=== PATIENT | female | born 1945 | race Caucasian/White ===

== ENCOUNTER 2021-05-16 06:04 | Emergency (ER) | payer MEDICARE, OTHER ==
[~2021-05-16] VITALS: Ht 165.1 cm; Wt 88.6 kg
[~2021-05-16 06:04] MED LIST: LISI-232 PO; TRAM50TA2 PO
[2021-05-16 07:40] LABS: BASOPHILS % (AUTO) 0.5 % (0-1); EOSINOPHILS % (AUTO) 0.1 % (0-6); HEMATOCRIT 36.9 % (35.0-45.0); HEMOGLOBIN 12.5 g/dl (12.0-16.0); LYMPHOCYTES # (AUTO) 0.7 X10'3 (1.1-4.8); LYMPHOCYTES % (AUTO) 11.3 % (21-51); MEAN CORPUSCULAR HEMOGLOBIN 29.6 PG (27.0-31.0); MEAN CORPUSCULAR VOLUME 86.9 FL (78-98); MEAN PLATELET VOLUME 8.2 FL (7.4-10.4); MONOCYTES # (AUTO) 0.5 X10'3 (0-0.9); MONOCYTES % (AUTO) 8.2 % (2-12); NEUTROPHILS % (AUTO) 79.9 % (42-75); PLATELET COUNT 217 X10'3 (140-440); RED BLOOD COUNT 4.24 X10'6 (4.20-5.60); RED CELL DISTRIBUTION WIDTH 14.5 % (11.5-14.5); WHITE BLOOD COUNT 6.2 X10'3 (4.5-11.0)
[2021-05-16 07:58] LABS: ALANINE AMINOTRANSFERASE 15 U/L (12-78); ALBUMIN 3.6 G/DL (3.4-5.0); ALKALINE PHOSPHATASE 74 IU/L (46-116); ANION GAP 12 (8-16); ASPARTATE AMINO TRANSFERASE 15 U/L (10-37); BILIRUBIN,TOTAL 0.3 MG/DL (0.1-1.0); BLOOD UREA NITROGEN 19 MG/DL (7-18); BUN/CREATININE RATIO 17.4 (6.6-38.0); CALCIUM 8.6 MG/DL (8.5-10.1); CHLORIDE 102 MMOL/L (99-107); CREATININE 1.09 MG/DL (0.40-0.90); GLUCOSE 121 MG/DL (70-104); POTASSIUM 3.8 MMOL/L (3.5-5.1); SODIUM 139 MMOL/L (135-145); TOTAL CARBON DIOXIDE 25.3 MMOL/L (24-32); TOTAL PROTEIN 7.3 G/DL (6.4-8.2); eGFR 49 ML/MIN
[2021-05-16] MEDS ORDERED: [UNRECOGNIZED DRUG - OTHER] IV ONE (08:25)
[2021-05-16] MEDS ORDERED: CASIRIVIMAB (REGN10933) 1332MG 600 MG, IMDEVIMAB (REGN10987) 1332mg 600 MG in normal sa... IV ONE (09:20)
[2021-05-16 12:57] VITALS: BP 149/88
== END 2021-05-16 13:00 | disposition home or self-care (01) ==
LOC: ER 06:05
DX: U07.1 COVID-19 (principal); J06.9 Acute upper respiratory infection, unspecified; R09.81 Nasal congestion; R51.9 Headache, unspecified; R11.0 Nausea; R05 Cough; R07.89 Other chest pain; I10 Essential (primary) hypertension; Z87.440 Personal history of urinary (tract) infections; Z98.890 Other specified postprocedural states; Z72.89 Other problems related to lifestyle; Z88.8 Allergy status to other drugs, medicaments and biological substances; Z79.899 Other long term (current) drug therapy
CPT/HCPCS: 36415; 71045; 80053; 84484; 85025; 87635; 93005; 99285; C9803; M0243; Q0243

== ENCOUNTER 2023-09-10 10:55 | Inpatient (IN) | payer MEDICARE, OTHER ==
[~2023-09-10] VITALS: Ht 165.1 cm; Wt 96.8 kg
[2023-09-10 11:44] LABS: BASOPHILS # (AUTO) 0.1 X10'3 (0-0.2); BASOPHILS % (AUTO) 0.8 % (0-1); EOSINOPHILS # (AUTO) 0.1 X10'3 (0-0.9); EOSINOPHILS % (AUTO) 1.1 % (0-6); HEMOGLOBIN 14.1 g/dl (12.0-16.0); LYMPHOCYTES # (AUTO) 1.7 X10'3 (1.1-4.8); LYMPHOCYTES % (AUTO) 18.3 % (21-51); MEAN CORPUSCULAR HEMOGLOBIN 30.8 PG (27.0-31.0); MEAN CORPUSCULAR HGB CONC 34.5 g/dL (33.0-36.5); MEAN CORPUSCULAR VOLUME 89.2 FL (78-98); MEAN PLATELET VOLUME 8.3 FL (7.4-10.4); MONOCYTES # (AUTO) 0.5 X10'3 (0-0.9); MONOCYTES % (AUTO) 5.6 % (2-12); NEUTROPHILS # (AUTO) 7.1 X10'3 (1.8-7.7); NEUTROPHILS % (AUTO) 74.2 % (42-75); PLATELET COUNT 329 X10'3 (140-440); RED CELL DISTRIBUTION WIDTH 14.7 % (11.5-14.5); WHITE BLOOD COUNT 9.5 X10'3 (4.5-11.0)
[2023-09-10] MEDS ORDERED: diltiazem-NS 100mg/100ml 100 ML IV SCH ×2 (11:50→14:20)
[2023-09-10] MEDS ORDERED: diltiazem 5mg/ml 5ml inj. IV ONE ×2 (11:50→14:20)
[2023-09-10 11:57] LABS: ALANINE AMINOTRANSFERASE 22 U/L (12-78); ALBUMIN 3.9 G/DL (3.4-5.0); ALBUMIN/GLOBULIN RATIO 1.1 (1.1-1.5); ALKALINE PHOSPHATASE 74 IU/L (46-116); ANION GAP 11 (8-16); ASPARTATE AMINO TRANSFERASE 25 U/L (10-37); BILIRUBIN,TOTAL 0.5 MG/DL (0.1-1.0); BLOOD UREA NITROGEN 21 MG/DL (7-18); BUN/CREATININE RATIO 19.3 (10.0-20.0); CALCIUM 9.2 MG/DL (8.5-10.1); CHLORIDE 102 MMOL/L (99-107); CREATININE 1.09 MG/DL (0.40-0.90); GLUCOSE 123 MG/DL (70-104); SODIUM 138 MMOL/L (135-145); TOTAL CARBON DIOXIDE 25.2 MMOL/L (24-32); TOTAL PROTEIN 7.5 G/DL (6.4-8.2); eCRCL 40 ML/MIN; eGFR 49 ML/MIN
[2023-09-10 12:06] LABS: PRO BRAIN NATRIURETIC PEPTIDE 183 PG/ML (0-450)
[2023-09-10] MEDS ORDERED: ondansetron/PF 4mg/2ml inj IV PRN (13:55)
[2023-09-10] MEDS ORDERED: magnesium hydroxide 30ml (MOM) UD suspension PO PRN (13:55)
[2023-09-10] MEDS ORDERED: mag hydrox/Alum hydrox/simeth 30ml oral suspension PO PRN (13:55)
[2023-09-10] MEDS ORDERED: magnesium 4gm in 100ml NS 100 ML IV PRN (13:55)
[2023-09-10] MEDS ORDERED: magnesium Cl slow-release 64mg tablet PO PRN (13:55)
[2023-09-10] MEDS ORDERED: magnesium 2GM in 50ml NS 50 ML IV PRN (13:55)
[2023-09-10] MEDS ORDERED: acetaminophen 325mg tablet PO PRN (13:55)
[2023-09-10] MEDS ORDERED: potassium Cl 20 mEq SR tablet PO PRN ×2 (13:55)
[2023-09-10] MEDS ORDERED: potassium Cl 40MEQ/1/2NS 520ml 520 ML IV PRN (13:55)
[2023-09-10] MEDS ORDERED: diltiazem CD 120mg capsule (once-daily) PO SCH (14:35)
[2023-09-10] MEDS: diltiazem 30mg tablet PO SCH (18:51)
[2023-09-10] MEDS ORDERED: heparin, porcine 5000 units/ml vial SQ SCH (20:00)
[2023-09-10] MEDS: docusate sod 100mg capsule PO SCH (20:00)
[2023-09-10] MEDS: K and/or MAG REPLACEMENT MC SCH (20:12)
[2023-09-10] MEDS: apixaban 5mg tablet PO SCH (20:20)
[2023-09-10 21:52] VITALS: RESP 19; O2SAT 97
[2023-09-10 22:00] VITALS: BP 137/90; PULSE 63; RESP 19; TEMP 97.2; O2SAT 97
[2023-09-11] VITALS (9 sets, daily range): BP systolic 111–139; BP diastolic 64–91; PULSE 87–130; RESP 16–19; TEMP 97.1–98; O2SAT 93–98
[2023-09-11] MEDS: diltiazem 30mg tablet PO SCH ×4 (02:32→20:02)
[2023-09-11 06:39] LABS: BASOPHILS # (AUTO) 0.1 X10'3 (0-0.2); BASOPHILS % (AUTO) 0.6 % (0-1); EOSINOPHILS # (AUTO) 0.2 X10'3 (0-0.9); EOSINOPHILS % (AUTO) 2.4 % (0-6); HEMATOCRIT 38.2 % (35.0-45.0); HEMOGLOBIN 12.9 g/dl (12.0-16.0); LYMPHOCYTES # (AUTO) 2.5 X10'3 (1.1-4.8); LYMPHOCYTES % (AUTO) 27.4 % (21-51); MEAN CORPUSCULAR HGB CONC 33.8 g/dL (33.0-36.5); MEAN CORPUSCULAR VOLUME 88.6 FL (78-98); MEAN PLATELET VOLUME 8.3 FL (7.4-10.4); MONOCYTES # (AUTO) 0.7 X10'3 (0-0.9); MONOCYTES % (AUTO) 8.3 % (2-12); NEUTROPHILS # (AUTO) 5.5 X10'3 (1.8-7.7); NEUTROPHILS % (AUTO) 61.3 % (42-75); PLATELET COUNT 311 X10'3 (140-440); RED BLOOD COUNT 4.31 X10'6 (4.20-5.60); RED CELL DISTRIBUTION WIDTH 14.3 % (11.5-14.5); WHITE BLOOD COUNT 8.9 X10'3 (4.5-11.0)
[2023-09-11 07:09] LABS: ALANINE AMINOTRANSFERASE 19 U/L (12-78); ALBUMIN 3.4 G/DL (3.4-5.0); ALKALINE PHOSPHATASE 64 IU/L (46-116); ANION GAP 10 (8-16); ASPARTATE AMINO TRANSFERASE 14 U/L (10-37); BILIRUBIN,TOTAL 0.5 MG/DL (0.1-1.0); BLOOD UREA NITROGEN 27 MG/DL (7-18); BUN/CREATININE RATIO 22.5 (10.0-20.0); CALCIUM 8.9 MG/DL (8.5-10.1); CHLORIDE 104 MMOL/L (99-107); GLUCOSE 109 MG/DL (70-104); MAGNESIUM 1.5 MG/DL (1.5-2.4); PHOSPHORUS 4.7 MG/DL (2.3-4.5); POTASSIUM 3.9 MMOL/L (3.5-5.1); SODIUM 140 MMOL/L (135-145); TOTAL CARBON DIOXIDE 26.1 MMOL/L (24-32); TOTAL PROTEIN 6.8 G/DL (6.4-8.2); eCRCL 36 ML/MIN; eGFR 44 ML/MIN
[2023-09-11] MEDS: K and/or MAG REPLACEMENT MC SCH ×2 (08:00→20:03)
[2023-09-11] MEDS: apixaban 5mg tablet PO SCH ×2 (08:35→20:01)
[2023-09-11] MEDS: docusate sod 100mg capsule PO SCH ×2 (08:37→20:00)
[2023-09-11] MEDS ORDERED: digoxin 250mcg/ml 2ml ampule IV ONE (09:20)
[2023-09-12] VITALS (11 sets, daily range): BP systolic 101–133; BP diastolic 64–99; PULSE 67–120; RESP 14–19; TEMP 97.6–99.9; O2SAT 95–96
[2023-09-12] MEDS: diltiazem 30mg tablet PO SCH ×2 (02:23→07:26)
[2023-09-12 06:41] LABS: BASOPHILS # (AUTO) 0.1 X10'3 (0-0.2); BASOPHILS % (AUTO) 0.9 % (0-1); EOSINOPHILS # (AUTO) 0.2 X10'3 (0-0.9); HEMATOCRIT 38.4 % (35.0-45.0); HEMOGLOBIN 12.9 g/dl (12.0-16.0); LYMPHOCYTES # (AUTO) 2.2 X10'3 (1.1-4.8); LYMPHOCYTES % (AUTO) 28.4 % (21-51); MEAN CORPUSCULAR HEMOGLOBIN 29.9 PG (27.0-31.0); MEAN CORPUSCULAR HGB CONC 33.7 g/dL (33.0-36.5); MEAN CORPUSCULAR VOLUME 88.9 FL (78-98); MEAN PLATELET VOLUME 8.1 FL (7.4-10.4); MONOCYTES # (AUTO) 0.6 X10'3 (0-0.9); NEUTROPHILS # (AUTO) 4.6 X10'3 (1.8-7.7); NEUTROPHILS % (AUTO) 59.7 % (42-75); PLATELET COUNT 292 X10'3 (140-440); RED BLOOD COUNT 4.32 X10'6 (4.20-5.60); RED CELL DISTRIBUTION WIDTH 14.2 % (11.5-14.5); WHITE BLOOD COUNT 7.7 X10'3 (4.5-11.0)
[2023-09-12 06:51] LABS: ALANINE AMINOTRANSFERASE 20 U/L (12-78); ALBUMIN 3.4 G/DL (3.4-5.0); ALKALINE PHOSPHATASE 58 IU/L (46-116); ANION GAP 9 (8-16); ASPARTATE AMINO TRANSFERASE 14 U/L (10-37); BILIRUBIN,TOTAL 0.5 MG/DL (0.1-1.0); BLOOD UREA NITROGEN 21 MG/DL (7-18); BUN/CREATININE RATIO 19.1 (10.0-20.0); CALCIUM 8.9 MG/DL (8.5-10.1); CHLORIDE 103 MMOL/L (99-107); CHOL/HDL RATIO 4.6 (0.00-4.99); CHOLESTEROL 214 MG/DL (0-200); GLUCOSE 109 MG/DL (70-104); HDL CHOLESTEROL 47 MG/DL (35-60); LDL CHOLESTEROL 136 MG/DL (50-100); MAGNESIUM 1.5 MG/DL (1.5-2.4); PHOSPHORUS 3.9 MG/DL (2.3-4.5); POTASSIUM 3.7 MMOL/L (3.5-5.1); SODIUM 138 MMOL/L (135-145); THYROID STIMULATING HORMONE 1.26 ulU/ml (0.34-4.50); TOTAL CARBON DIOXIDE 25.6 MMOL/L (24-32); TOTAL PROTEIN 6.8 G/DL (6.4-8.2); TRIGLYCERIDES 161 MG/DL (20-135); eCRCL 39 ML/MIN; eGFR 48 ML/MIN
[2023-09-12] MEDS: apixaban 5mg tablet PO SCH ×2 (07:26→20:06)
[2023-09-12] MEDS: docusate sod 100mg capsule PO SCH ×2 (08:00→20:00)
[2023-09-12] MEDS: K and/or MAG REPLACEMENT MC SCH ×2 (08:00→20:00)
[2023-09-12] MEDS: metoprolol tartrate 25mg tablet PO SCH ×2 (10:18→20:07)
[2023-09-12] MEDS ORDERED: diltiazem CD 180mg cap (once-daily) PO SCH (12:30)
[2023-09-12] MEDS ORDERED: diltiazem CD 120mg capsule (once-daily) PO ONE (16:05)
[2023-09-13 02:00] VITALS: BP 144/81; PULSE 96; RESP 18; TEMP 98.2; O2SAT 95
[2023-09-13 07:00] VITALS: BP 131/82; PULSE 80; RESP 18; TEMP 98.2; O2SAT 96
[2023-09-13 07:35] LABS: BASOPHILS % (AUTO) 0.6 % (0-1); EOSINOPHILS # (AUTO) 0.2 X10'3 (0-0.9); EOSINOPHILS % (AUTO) 1.9 % (0-6); HEMATOCRIT 37.4 % (35.0-45.0); HEMOGLOBIN 12.7 g/dl (12.0-16.0); LYMPHOCYTES # (AUTO) 2.3 X10'3 (1.1-4.8); LYMPHOCYTES % (AUTO) 28.9 % (21-51); MEAN CORPUSCULAR HGB CONC 33.9 g/dL (33.0-36.5); MEAN CORPUSCULAR VOLUME 88.6 FL (78-98); MEAN PLATELET VOLUME 8.2 FL (7.4-10.4); MONOCYTES # (AUTO) 0.6 X10'3 (0-0.9); MONOCYTES % (AUTO) 7.2 % (2-12); NEUTROPHILS # (AUTO) 4.8 X10'3 (1.8-7.7); NEUTROPHILS % (AUTO) 61.4 % (42-75); PLATELET COUNT 288 X10'3 (140-440); RED BLOOD COUNT 4.22 X10'6 (4.20-5.60); RED CELL DISTRIBUTION WIDTH 14.5 % (11.5-14.5); WHITE BLOOD COUNT 7.8 X10'3 (4.5-11.0)
[2023-09-13 07:58] LABS: ALANINE AMINOTRANSFERASE 19 U/L (12-78); ALBUMIN 3.5 G/DL (3.4-5.0); ALKALINE PHOSPHATASE 64 IU/L (46-116); ANION GAP 11 (8-16); ASPARTATE AMINO TRANSFERASE 13 U/L (10-37); BILIRUBIN,TOTAL 0.5 MG/DL (0.1-1.0); BLOOD UREA NITROGEN 24 MG/DL (7-18); BUN/CREATININE RATIO 22.2 (10.0-20.0); CHLORIDE 103 MMOL/L (99-107); CREATININE 1.08 MG/DL (0.40-0.90); GLUCOSE 108 MG/DL (70-104); MAGNESIUM 1.6 MG/DL (1.5-2.4); PHOSPHORUS 3.8 MG/DL (2.3-4.5); POTASSIUM 3.8 MMOL/L (3.5-5.1); SODIUM 140 MMOL/L (135-145); TOTAL CARBON DIOXIDE 26.3 MMOL/L (24-32); eCRCL 40 ML/MIN; eGFR 49 ML/MIN
[2023-09-13] MEDS ORDERED: HYDROchlorothiazide 12.5mg capsule PO SCH (08:00)
[2023-09-13] MEDS: docusate sod 100mg capsule PO SCH (08:00)
[2023-09-13] MEDS: K and/or MAG REPLACEMENT MC SCH (08:00)
[2023-09-13] MEDS ORDERED: diltiazem CD 180mg cap (once-daily) PO SCH (08:00)
[2023-09-13] MEDS ORDERED: lisinopril 20mg tablet PO SCH (08:00)
[2023-09-13] MEDS: apixaban 5mg tablet PO SCH (08:15)
[2023-09-13] MEDS: metoprolol tartrate 25mg tablet PO SCH (08:17)
[2023-09-13 10:00] VITALS: BP 130/72; PULSE 93; RESP 14; TEMP 97.7; O2SAT 94
[2023-09-13] MEDS ORDERED: LOP25T PO (10:40)
[2023-09-13] MEDS ORDERED: APIX5TAB3 PO (10:40)
[2023-09-13] MEDS ORDERED: DILT300C53 PO (10:40)
== END 2023-09-13 14:20 | disposition home or self-care (01) | DRG 308 ==
LOC: ER 10:55 → UNDOADMIN 13:56 → ED HOLD 13:56 → EDBEDREQ 20:51 → ED HOLD 21:33 → PCU 3S 21:33 → UNDODISIN 09-13 14:20
PROVIDERS: ADMIT Internal Medicine; ATTEND Internal Medicine
DX: I48.91 Unspecified atrial fibrillation (principal); N17.0 Acute kidney failure with tubular necrosis; I10 Essential (primary) hypertension; Z90.5 Acquired absence of kidney; Z79.899 Other long term (current) drug therapy; Z88.5 Allergy status to narcotic agent
CPT/HCPCS: 36415; 71045; 80053; 80061; 83735; 83880; 84100; 84443; 84484; 85025; 87081; 93306; 99285; G0378; J1160; J3490

== ENCOUNTER 2023-10-10 10:42 | Inpatient (IN) | payer MEDICARE, OTHER ==
[~2023-10-10] VITALS: Ht 165.1 cm; Wt 100.7 kg
[~2023-10-10 10:42] MED LIST changes: +APIX5TAB3 PO; +DILT300C53 PO; -LISI-232 PO; +LOP25T PO; -TRAM50TA2 PO
[2023-10-10] MEDS ORDERED: diltiazem 5mg/ml 5ml inj. IV ONE ×2 (11:04→11:10)
[2023-10-10 11:13] LABS: BASOPHILS # (AUTO) 0.2 X10'3 (0-0.2); BASOPHILS % (AUTO) 1.8 % (0-1); EOSINOPHILS # (AUTO) 0.2 X10'3 (0-0.9); EOSINOPHILS % (AUTO) 2.5 % (0-6); HEMATOCRIT 42.3 % (35.0-45.0); HEMOGLOBIN 14.3 g/dl (12.0-16.0); LYMPHOCYTES # (AUTO) 1.6 X10'3 (1.1-4.8); LYMPHOCYTES % (AUTO) 17.2 % (21-51); MEAN CORPUSCULAR HGB CONC 33.8 g/dL (33.0-36.5); MEAN CORPUSCULAR VOLUME 88.6 FL (78-98); MEAN PLATELET VOLUME 8.1 FL (7.4-10.4); MONOCYTES # (AUTO) 0.5 X10'3 (0-0.9); MONOCYTES % (AUTO) 5.2 % (2-12); NEUTROPHILS % (AUTO) 73.3 % (42-75); PLATELET COUNT 331 X10'3 (140-440); RED BLOOD COUNT 4.78 X10'6 (4.20-5.60); RED CELL DISTRIBUTION WIDTH 14.8 % (11.5-14.5); WHITE BLOOD COUNT 9.6 X10'3 (4.5-11.0)
[2023-10-10 11:23] LABS: ALANINE AMINOTRANSFERASE 50 U/L (12-78); ALBUMIN 3.6 G/DL (3.4-5.0); ALKALINE PHOSPHATASE 68 IU/L (46-116); ANION GAP 13 (8-16); ASPARTATE AMINO TRANSFERASE 17 U/L (10-37); BILIRUBIN,TOTAL 0.6 MG/DL (0.1-1.0); BLOOD UREA NITROGEN 18 MG/DL (7-18); BUN/CREATININE RATIO 16.2 (10.0-20.0); CALCIUM 9.2 MG/DL (8.5-10.1); CHLORIDE 105 MMOL/L (99-107); CREATININE 1.11 MG/DL (0.40-0.90); GLUCOSE 124 MG/DL (70-104); POTASSIUM 4.1 MMOL/L (3.5-5.1); SODIUM 140 MMOL/L (135-145); TOTAL CARBON DIOXIDE 22.3 MMOL/L (24-32); TOTAL PROTEIN 7.1 G/DL (6.4-8.2); eCRCL 38 ML/MIN; eGFR 48 ML/MIN
[2023-10-10 11:32] LABS: PRO BRAIN NATRIURETIC PEPTIDE 1008 PG/ML (0-450)
[2023-10-10 12:28] LABS: FREE T4 (FREE THYROXINE) 0.99 NG/DL (0.73-1.40); MAGNESIUM 1.3 MG/DL (1.5-2.4); THYROID STIMULATING HORMONE 2.28 ulU/ml (0.34-4.50)
[2023-10-10] MEDS ORDERED: magnesium 2GM in 50ml NS 50 ML IV PRN (12:55)
[2023-10-10] MEDS ORDERED: potassium Cl 40MEQ/1/2NS 520ml 520 ML IV PRN (12:55)
[2023-10-10] MEDS ORDERED: magnesium Cl slow-release 64mg tablet PO PRN (12:55)
[2023-10-10] MEDS ORDERED: magnesium 4gm in 100ml NS 100 ML IV PRN (12:55)
[2023-10-10] MEDS ORDERED: magnesium hydroxide 30ml (MOM) UD suspension PO PRN (12:55)
[2023-10-10] MEDS ORDERED: mag hydrox/Alum hydrox/simeth 30ml oral suspension PO PRN (12:55)
[2023-10-10] MEDS ORDERED: potassium Cl 20 mEq SR tablet PO PRN ×2 (12:55)
[2023-10-10] MEDS ORDERED: ondansetron 4mg rapidly disintigrating tab PO PRN (12:55)
[2023-10-10] MEDS ORDERED: acetaminophen 325mg tablet PO PRN (12:55)
[2023-10-10] MEDS ORDERED: ondansetron/PF 4mg/2ml inj IV PRN (12:55)
[2023-10-10] MEDS: normal saline 1000ml 1,000 ML IV SCH ×2 (13:47→16:56)
[2023-10-10 16:00] VITALS: BP 145/84; PULSE 117; RESP 17; TEMP 97.8; O2SAT 97
[2023-10-10] MEDS: diltiazem-NS 100mg/100ml 100 ML IV SCH (16:56)
[2023-10-10 18:00] VITALS: BP 127/60; PULSE 117; RESP 17; TEMP 97.8; O2SAT 97
[2023-10-10 20:00] VITALS: RESP 18; O2SAT 97
[2023-10-10] MEDS: K and/or MAG REPLACEMENT MC SCH (20:00)
[2023-10-10] MEDS: apixaban 5mg tablet PO SCH (20:29)
[2023-10-10] MEDS: metoprolol tartrate 25mg tablet PO SCH (20:29)
[2023-10-10] MEDS ORDERED: temazepam 15mg capsule PO PRN (21:00)
[2023-10-10 22:00] VITALS: BP 115/62; PULSE 78; RESP 18; TEMP 99.4; O2SAT 97
[2023-10-11] VITALS (14 sets, daily range): BP systolic 99–132; BP diastolic 64–82; PULSE 82–107; RESP 15–18; TEMP 98–98.8; O2SAT 96–97
[2023-10-11] MEDS: diltiazem-NS 100mg/100ml 100 ML IV SCH (04:00)
[2023-10-11 07:06] LABS: BASOPHILS # (AUTO) 0.1 X10'3 (0-0.2); BASOPHILS % (AUTO) 0.8 % (0-1); EOSINOPHILS # (AUTO) 0.2 X10'3 (0-0.9); EOSINOPHILS % (AUTO) 2.5 % (0-6); HEMATOCRIT 37.7 % (35.0-45.0); HEMOGLOBIN 12.9 g/dl (12.0-16.0); LYMPHOCYTES # (AUTO) 2.5 X10'3 (1.1-4.8); LYMPHOCYTES % (AUTO) 31.2 % (21-51); MEAN CORPUSCULAR HEMOGLOBIN 30.5 PG (27.0-31.0); MEAN CORPUSCULAR HGB CONC 34.3 g/dL (33.0-36.5); MEAN CORPUSCULAR VOLUME 88.8 FL (78-98); MEAN PLATELET VOLUME 7.9 FL (7.4-10.4); MONOCYTES # (AUTO) 0.6 X10'3 (0-0.9); MONOCYTES % (AUTO) 7.1 % (2-12); NEUTROPHILS # (AUTO) 4.7 X10'3 (1.8-7.7); NEUTROPHILS % (AUTO) 58.4 % (42-75); PLATELET COUNT 311 X10'3 (140-440); RED BLOOD COUNT 4.24 X10'6 (4.20-5.60); RED CELL DISTRIBUTION WIDTH 14.6 % (11.5-14.5)
[2023-10-11 07:22] LABS: ALANINE AMINOTRANSFERASE 37 U/L (12-78); ALBUMIN 3.6 G/DL (3.4-5.0); ALBUMIN/GLOBULIN RATIO 0.9 (1.1-1.5); ALKALINE PHOSPHATASE 82 IU/L (46-116); ANION GAP 11 (8-16); ASPARTATE AMINO TRANSFERASE 13 U/L (10-37); BILIRUBIN,TOTAL 0.6 MG/DL (0.1-1.0); BLOOD UREA NITROGEN 18 MG/DL (7-18); BUN/CREATININE RATIO 15.4 (10.0-20.0); CALCIUM 9.1 MG/DL (8.5-10.1); CHLORIDE 106 MMOL/L (99-107); CREATININE 1.17 MG/DL (0.40-0.90); GLUCOSE 106 MG/DL (70-104); MAGNESIUM 1.4 MG/DL (1.5-2.4); POTASSIUM 3.8 MMOL/L (3.5-5.1); SODIUM 143 MMOL/L (135-145); TOTAL CARBON DIOXIDE 26.1 MMOL/L (24-32); TOTAL PROTEIN 7.5 G/DL (6.4-8.2); eCRCL 36 ML/MIN; eGFR 45 ML/MIN
[2023-10-11] MEDS: K and/or MAG REPLACEMENT MC SCH ×2 (08:00→20:00)
[2023-10-11] MEDS: apixaban 5mg tablet PO SCH ×2 (08:01→20:32)
[2023-10-11] MEDS: metoprolol tartrate 25mg tablet PO SCH ×2 (08:02→20:32)
[2023-10-11] MEDS: diltiazem 30mg tablet PO SCH ×3 (11:44→20:32)
[2023-10-12] MEDS: diltiazem 30mg tablet PO SCH ×2 (01:07→07:23)
[2023-10-12 02:00] VITALS: BP 134/80; PULSE 90; RESP 18; TEMP 98.2; O2SAT 97
[2023-10-12 06:58] LABS: BASOPHILS # (AUTO) 0.1 X10'3 (0-0.2); BASOPHILS % (AUTO) 0.7 % (0-1); EOSINOPHILS # (AUTO) 0.2 X10'3 (0-0.9); EOSINOPHILS % (AUTO) 3.1 % (0-6); HEMATOCRIT 36.1 % (35.0-45.0); LYMPHOCYTES % (AUTO) 26.9 % (21-51); MEAN CORPUSCULAR HEMOGLOBIN 29.9 PG (27.0-31.0); MEAN CORPUSCULAR HGB CONC 33.2 g/dL (33.0-36.5); MEAN PLATELET VOLUME 8.2 FL (7.4-10.4); MONOCYTES # (AUTO) 0.7 X10'3 (0-0.9); MONOCYTES % (AUTO) 8.9 % (2-12); NEUTROPHILS # (AUTO) 4.6 X10'3 (1.8-7.7); NEUTROPHILS % (AUTO) 60.4 % (42-75); PLATELET COUNT 294 X10'3 (140-440); RED BLOOD COUNT 4.01 X10'6 (4.20-5.60); RED CELL DISTRIBUTION WIDTH 14.7 % (11.5-14.5); WHITE BLOOD COUNT 7.6 X10'3 (4.5-11.0)
[2023-10-12 07:00] VITALS: BP 139/85; PULSE 94; RESP 14; TEMP 97.6; O2SAT 94
[2023-10-12 07:13] LABS: ALANINE AMINOTRANSFERASE 31 U/L (12-78); ALBUMIN 3.3 G/DL (3.4-5.0); ALBUMIN/GLOBULIN RATIO 1.1 (1.1-1.5); ALKALINE PHOSPHATASE 54 IU/L (46-116); ANION GAP 9 (8-16); ASPARTATE AMINO TRANSFERASE 14 U/L (10-37); BILIRUBIN,TOTAL 0.5 MG/DL (0.1-1.0); BLOOD UREA NITROGEN 19 MG/DL (7-18); BUN/CREATININE RATIO 15.8 (10.0-20.0); CALCIUM 8.9 MG/DL (8.5-10.1); CHLORIDE 107 MMOL/L (99-107); GLUCOSE 102 MG/DL (70-104); MAGNESIUM 1.5 MG/DL (1.5-2.4); POTASSIUM 4.1 MMOL/L (3.5-5.1); SODIUM 143 MMOL/L (135-145); TOTAL CARBON DIOXIDE 27.4 MMOL/L (24-32); TOTAL PROTEIN 6.4 G/DL (6.4-8.2); eCRCL 35 ML/MIN; eGFR 44 ML/MIN
[2023-10-12] MEDS: apixaban 5mg tablet PO SCH (07:21)
[2023-10-12 07:23] VITALS: BP_SYST 139; PULSE 94
[2023-10-12] MEDS: metoprolol tartrate 25mg tablet PO SCH (07:23)
[2023-10-12 08:00] VITALS: RESP 14; O2SAT 94
[2023-10-12] MEDS: K and/or MAG REPLACEMENT MC SCH (08:00)
[2023-10-12] MEDS ORDERED: DILT360C29 PO (10:54)
== END 2023-10-12 11:42 | disposition home or self-care (01) | DRG 310 ==
LOC: ER 10:43 → ED HOLD 12:57 → EDBEDREQ 15:09 → PCU 3S 15:50
PROVIDERS: ADMIT Family Medicine; ATTEND Family Medicine
DX: I48.91 Unspecified atrial fibrillation (principal); I13.10 Hypertensive heart and chronic kidney disease without heart failure, with stage 1 through stage 4 chronic kidney disease, or unspecified chronic kidney disease; N18.30 Chronic kidney disease, stage 3 unspecified; Z79.01 Long term (current) use of anticoagulants; Z87.891 Personal history of nicotine dependence; Z90.49 Acquired absence of other specified parts of digestive tract; Z90.5 Acquired absence of kidney; Z90.710 Acquired absence of both cervix and uterus; Z79.899 Other long term (current) drug therapy; Z88.8 Allergy status to other drugs, medicaments and biological substances
CPT/HCPCS: 36415; 71045; 80053; 83735; 83880; 84439; 84443; 84484; 85025; 87081; 96374; 99291; A4314; G0378; J3490; J7030

== ENCOUNTER 2023-10-24 21:36 | Emergency (ER) | payer OTHER, MEDICARE ==
[~2023-10-24] VITALS: Ht 165.1 cm; Wt 90.0 kg
[~2023-10-24 21:36] MED LIST changes: -DILT300C53 PO; +DILT360C29 PO
[2023-10-24] MEDS ORDERED: oxymetazoline 15 ML nasal spray NS ONE (22:25)
[2023-10-24 22:58] VITALS: BP 151/95; PULSE 110; RESP 14; TEMP 97.8; O2SAT 96
== END 2023-10-24 23:45 | disposition home or self-care (01) ==
LOC: ER 21:36
DX: R04.0 Epistaxis (principal); I10 Essential (primary) hypertension; Z90.710 Acquired absence of both cervix and uterus; Z90.89 Acquired absence of other organs
CPT/HCPCS: 99282; 99283

== ENCOUNTER 2023-11-23 11:49 | Day surgery (SDC) | payer MEDICARE, OTHER ==
[2023-11-19 11:44] LABS: BASOPHILS # (AUTO) 0.1 X10'3 (0-0.2); BASOPHILS % (AUTO) 0.7 % (0-1); EOSINOPHILS # (AUTO) 0.2 X10'3 (0-0.9); EOSINOPHILS % (AUTO) 2.8 % (0-6); HEMATOCRIT 40.7 % (35.0-45.0); HEMOGLOBIN 13.5 g/dl (12.0-16.0); LYMPHOCYTES # (AUTO) 1.6 X10'3 (1.1-4.8); LYMPHOCYTES % (AUTO) 18.7 % (21-51); MEAN CORPUSCULAR HEMOGLOBIN 29.4 PG (27.0-31.0); MEAN CORPUSCULAR HGB CONC 33.1 g/dL (33.0-36.5); MEAN CORPUSCULAR VOLUME 88.8 FL (78-98); MEAN PLATELET VOLUME 8.2 FL (7.4-10.4); MONOCYTES # (AUTO) 0.6 X10'3 (0-0.9); MONOCYTES % (AUTO) 6.7 % (2-12); NEUTROPHILS # (AUTO) 6.2 X10'3 (1.8-7.7); NEUTROPHILS % (AUTO) 71.1 % (42-75); PLATELET COUNT 308 X10'3 (140-440); RED BLOOD COUNT 4.58 X10'6 (4.20-5.60); RED CELL DISTRIBUTION WIDTH 14.8 % (11.5-14.5); WHITE BLOOD COUNT 8.7 X10'3 (4.5-11.0)
[2023-11-19 11:54] LABS: ALBUMIN 3.8 G/DL (3.4-5.0); ANION GAP 10 (8-16); BLOOD UREA NITROGEN 21 MG/DL (7-18); BUN/CREATININE RATIO 18.3 (10.0-20.0); CHLORIDE 106 MMOL/L (99-107); CREATININE 1.15 MG/DL (0.40-0.90); GLUCOSE 103 MG/DL (70-104); POTASSIUM 4.3 MMOL/L (3.5-5.1); SODIUM 145 MMOL/L (135-145); TOTAL CARBON DIOXIDE 28.7 MMOL/L (24-32); eGFR 46 ML/MIN
[2023-11-19 12:00] LABS: CALCIUM 7.9 MG/DL (8.5-10.1)
[2023-11-19 12:38] LABS: APTT 32 SECONDS (22-32); INR 1.1 INR; PROTHROMBIN TIME 11.4 SECONDS (9.0-12.0)
[~2023-11-23] VITALS: Ht 165.1 cm; Wt 97.6 kg
[2023-11-23] VITALS (9 sets, daily range): BP systolic 126–161; BP diastolic 64–89; PULSE 58–137; RESP 16; TEMP 97.9; O2SAT 95–98
[2023-11-23] MEDS ORDERED: APIX5TAB3 PO (12:33)
[2023-11-23] MEDS ORDERED: CARSR60C PO (12:33)
[2023-11-23] MEDS ORDERED: LOP12.5T PO (12:33)
[2023-11-23] MEDS: MIDAZolam 1mg/ml 10ml vial IV ONE (12:46)
[2023-11-23] MEDS: fentaNYL/PF 50MCG/1 ML 2ML syringe IV ONE (12:46)
[2023-11-23] MEDS: normal saline 1000ml 1,000 ML IV SCH (12:48)
== END 2023-11-23 17:00 | disposition home or self-care (01) ==
LOC: SSTAY O 11:49
PROVIDERS: ATTEND Student in an Organized Health Care Education/Training Program
DX: I48.91 Unspecified atrial fibrillation (principal); I49.3 Ventricular premature depolarization; I10 Essential (primary) hypertension; I49.9 Cardiac arrhythmia, unspecified; Z79.01 Long term (current) use of anticoagulants; Z79.899 Other long term (current) drug therapy; Z88.5 Allergy status to narcotic agent
CPT/HCPCS: 36415; 80048; 85025; 85610; 85730; 92960; 93005; J2250; J3010; J7030; A4620

== ENCOUNTER 2024-02-08 10:44 | Day surgery (SDC) | payer MEDICARE, OTHER ==
[2024-02-04 11:50] LABS: BASOPHILS # (AUTO) 0.1 X10'3 (0-0.2); BASOPHILS % (AUTO) 1.1 % (0-1); EOSINOPHILS # (AUTO) 0.3 X10'3 (0-0.9); EOSINOPHILS % (AUTO) 2.9 % (0-6); HEMATOCRIT 42.6 % (35.0-45.0); HEMOGLOBIN 14.3 g/dl (12.0-16.0); LYMPHOCYTES # (AUTO) 1.9 X10'3 (1.1-4.8); LYMPHOCYTES % (AUTO) 22.2 % (21-51); MEAN CORPUSCULAR HEMOGLOBIN 29.7 PG (27.0-31.0); MEAN CORPUSCULAR HGB CONC 33.6 g/dL (33.0-36.5); MEAN CORPUSCULAR VOLUME 88.6 FL (78-98); MEAN PLATELET VOLUME 8.4 FL (7.4-10.4); MONOCYTES # (AUTO) 0.6 X10'3 (0-0.9); MONOCYTES % (AUTO) 6.4 % (2-12); NEUTROPHILS # (AUTO) 5.8 X10'3 (1.8-7.7); NEUTROPHILS % (AUTO) 67.4 % (42-75); PLATELET COUNT 321 X10'3 (140-440); RED CELL DISTRIBUTION WIDTH 15.1 % (11.5-14.5); WHITE BLOOD COUNT 8.7 X10'3 (4.5-11.0)
[2024-02-04 12:00] LABS: ALBUMIN 3.8 G/DL (3.4-5.0); ANION GAP 11 (8-16); BLOOD UREA NITROGEN 21 MG/DL (7-18); BUN/CREATININE RATIO 17.5 (10.0-20.0); CALCIUM 9.2 MG/DL (8.5-10.1); CHLORIDE 105 MMOL/L (99-107); GLUCOSE 101 MG/DL (70-104); POTASSIUM 4.3 MMOL/L (3.5-5.1); SODIUM 142 MMOL/L (135-145); TOTAL CARBON DIOXIDE 26.1 MMOL/L (24-32); eGFR 44 ML/MIN
[2024-02-04 12:03] LABS: APTT 32 SECONDS (22-32); INR 1.1 INR; PROTHROMBIN TIME 11.4 SECONDS (9.0-12.0)
[2024-02-08] VITALS (9 sets, daily range): BP systolic 122–179; BP diastolic 68–97; PULSE 61–114; RESP 12–18; TEMP 98.4; O2SAT 96–98
[~2024-02-08] VITALS: Ht 165.1 cm; Wt 100.2 kg
[~2024-02-08 10:44] MED LIST changes: +CARSR60C PO; -DILT360C29 PO; +LOP12.5T PO; -LOP25T PO
[2024-02-08] MEDS ORDERED: AMI200T PO (11:12)
[2024-02-08] MEDS ORDERED: DILT360T13 PO (11:12)
[2024-02-08] MEDS ORDERED: normal saline 1000ml 1,000 ML IV SCH (11:15)
[2024-02-08 11:58] LABS: CHOL/HDL RATIO 3.7 (0.00-4.99); CHOLESTEROL 224 MG/DL (0-200); HDL CHOLESTEROL 60 MG/DL (35-60); LDL CHOLESTEROL 134 MG/DL (50-100); TRIGLYCERIDES 187 MG/DL (20-135)
[2024-02-08] MEDS: fentaNYL/PF 50MCG/1 ML 2ML syringe IV ONE (12:54)
[2024-02-08] MEDS: MIDAZolam 1mg/ml 10ml vial IV ONE (12:54)
== END 2024-02-08 13:40 | disposition home or self-care (01) ==
LOC: SSTAY O 10:44
PROVIDERS: ATTEND Student in an Organized Health Care Education/Training Program
DX: I48.91 Unspecified atrial fibrillation (principal); I10 Essential (primary) hypertension; Z79.01 Long term (current) use of anticoagulants
CPT/HCPCS: 36415; 80048; 80061; 85025; 85610; 85730; 92960; 93005; J2250; J3010; J7030; A4620

== ENCOUNTER 2024-02-13 12:02 | Inpatient (IN) | payer MEDICARE, OTHER ==
[~2024-02-13] VITALS: Ht 165.1 cm; Wt 100.5 kg
[~2024-02-13 12:02] MED LIST changes: +AMI200T PO; -CARSR60C PO; +DILT360T13 PO
[2024-02-13 12:43] LABS: ALANINE AMINOTRANSFERASE 14 U/L (12-78); ALBUMIN 3.9 G/DL (3.4-5.0); ALBUMIN/GLOBULIN RATIO 1.1 (1.1-1.5); ALKALINE PHOSPHATASE 66 IU/L (46-116); ANION GAP 10 (8-16); ASPARTATE AMINO TRANSFERASE 13 U/L (10-37); BILIRUBIN,TOTAL 0.7 MG/DL (0.1-1.0); BLOOD UREA NITROGEN 20 MG/DL (7-18); BUN/CREATININE RATIO 14.6 (10.0-20.0); CALCIUM 9.5 MG/DL (8.5-10.1); CHLORIDE 103 MMOL/L (99-107); CREATININE 1.37 MG/DL (0.40-0.90); GLUCOSE 105 MG/DL (70-104); POTASSIUM 4.5 MMOL/L (3.5-5.1); SODIUM 140 MMOL/L (135-145); TOTAL CARBON DIOXIDE 27.2 MMOL/L (24-32); TOTAL PROTEIN 7.6 G/DL (6.4-8.2); eCRCL 31 ML/MIN; eGFR 37 ML/MIN
[2024-02-13 12:45] LABS: BASOPHILS # (AUTO) 0.1 X10'3 (0-0.2); BASOPHILS % (AUTO) 0.9 % (0-1); EOSINOPHILS # (AUTO) 0.2 X10'3 (0-0.9); HEMATOCRIT 44.9 % (35.0-45.0); HEMOGLOBIN 15.2 g/dl (12.0-16.0); LYMPHOCYTES # (AUTO) 2.7 X10'3 (1.1-4.8); LYMPHOCYTES % (AUTO) 25.8 % (21-51); MEAN CORPUSCULAR HEMOGLOBIN 29.9 PG (27.0-31.0); MEAN CORPUSCULAR HGB CONC 33.8 g/dL (33.0-36.5); MEAN CORPUSCULAR VOLUME 88.5 FL (78-98); MEAN PLATELET VOLUME 8.6 FL (7.4-10.4); MONOCYTES # (AUTO) 0.8 X10'3 (0-0.9); MONOCYTES % (AUTO) 7.9 % (2-12); NEUTROPHILS # (AUTO) 6.6 X10'3 (1.8-7.7); NEUTROPHILS % (AUTO) 63.4 % (42-75); PLATELET COUNT 328 X10'3 (140-440); RED BLOOD COUNT 5.07 X10'6 (4.20-5.60); RED CELL DISTRIBUTION WIDTH 15.1 % (11.5-14.5); WHITE BLOOD COUNT 10.4 X10'3 (4.5-11.0)
[2024-02-13 12:50] LABS: PRO BRAIN NATRIURETIC PEPTIDE 536 PG/ML (0-450)
[2024-02-13] MEDS: nitroGLYCERIN 1gm ointment UD TP ONE (13:30)
[2024-02-13] MEDS: aspirin 325mg tablet PO ONE (13:30)
[2024-02-13] MEDS: diltiazem 5mg/ml 5ml inj. IV ONE (13:31)
[2024-02-13] MEDS ORDERED: acetaminophen 325mg tablet PO PRN (17:10)
[2024-02-13] MEDS ORDERED: magnesium Cl slow-release 64mg tablet PO PRN (17:10)
[2024-02-13] MEDS ORDERED: potassium Cl 40MEQ/1/2NS 520ml 520 ML IV PRN (17:10)
[2024-02-13] MEDS ORDERED: magnesium 2GM in 50ml NS 50 ML IV PRN (17:10)
[2024-02-13] MEDS ORDERED: magnesium 4gm in 100ml NS 100 ML IV PRN (17:10)
[2024-02-13] MEDS ORDERED: potassium Cl 20 mEq SR tablet PO PRN ×2 (17:10)
[2024-02-13] MEDS ORDERED: ondansetron/PF 4mg/2ml inj IV PRN (17:10)
[2024-02-13] MEDS ORDERED: magnesium hydroxide 30ml (MOM) UD suspension PO PRN (17:10)
[2024-02-13] MEDS ORDERED: mag hydrox/Alum hydrox/simeth 30ml oral suspension PO PRN (17:10)
[2024-02-13] MEDS ORDERED: metoprolol tartrate 1mg/ml inj IV PRN (17:20)
[2024-02-13] MEDS ORDERED: nitroGLYCERIN 0.4mg SUBLingual tab SL PRN (17:20)
[2024-02-13] MEDS ORDERED: regadenoson 0.4mg/5ml syringe IV PRN (17:20)
[2024-02-13] MEDS ORDERED: aminophylline 250mg/10ml inj. IV PRN (17:20)
[2024-02-13 19:26] VITALS: BP 146/78; PULSE 99; RESP 16; TEMP 98; O2SAT 98
[2024-02-13 19:30] VITALS: BP 146/78; PULSE 99
[2024-02-13] MEDS ORDERED: ASCO250T68 (19:46)
[2024-02-13] MEDS ORDERED: CHOL1LIQ (19:46)
[2024-02-13] MEDS ORDERED: VIT1TAB.18 (19:46)
[2024-02-13] MEDS ORDERED: CRAMP (19:46)
[2024-02-13] MEDS ORDERED: CYAN-34 PO (19:46)
[2024-02-13 20:00] VITALS: RESP 16; O2SAT 98
[2024-02-13] MEDS: K and/or MAG REPLACEMENT MC SCH (20:00)
[2024-02-13] MEDS: metoprolol tartrate 25mg tablet PO SCH (20:03)
[2024-02-13] MEDS: apixaban 5mg tablet PO SCH (20:03)
[2024-02-13] MEDS: docusate sod 100mg capsule PO SCH (20:03)
[2024-02-13] MEDS ORDERED: temazepam 15mg capsule PO PRN (21:00)
[2024-02-13 22:00] VITALS: BP_SYST 119; BP_SYST 124; BP_DIAS 66; BP_DIAS 69; BP_DIAS 73; PULSE 66; PULSE 68; PULSE 75; PULSE 76; RESP 18; TEMP 98.2; O2SAT 96
[2024-02-14 02:00] VITALS: BP 119/65; PULSE 64; RESP 16; TEMP 98.5; O2SAT 98
[2024-02-14 06:30] VITALS: BP 143/86; PULSE 80; RESP 20; TEMP 98.2; O2SAT 94
[2024-02-14 06:41] LABS: BASOPHILS # (AUTO) 0.1 X10'3 (0-0.2); BASOPHILS % (AUTO) 0.7 % (0-1); EOSINOPHILS # (AUTO) 0.2 X10'3 (0-0.9); EOSINOPHILS % (AUTO) 2.6 % (0-6); HEMATOCRIT 40.6 % (35.0-45.0); HEMOGLOBIN 13.6 g/dl (12.0-16.0); LYMPHOCYTES % (AUTO) 26.2 % (21-51); MEAN CORPUSCULAR HEMOGLOBIN 30.1 PG (27.0-31.0); MEAN CORPUSCULAR HGB CONC 33.6 g/dL (33.0-36.5); MEAN CORPUSCULAR VOLUME 89.6 FL (78-98); MEAN PLATELET VOLUME 8.3 FL (7.4-10.4); MONOCYTES # (AUTO) 0.6 X10'3 (0-0.9); MONOCYTES % (AUTO) 7.9 % (2-12); NEUTROPHILS # (AUTO) 4.8 X10'3 (1.8-7.7); NEUTROPHILS % (AUTO) 62.6 % (42-75); PLATELET COUNT 283 X10'3 (140-440); RED BLOOD COUNT 4.53 X10'6 (4.20-5.60); WHITE BLOOD COUNT 7.7 X10'3 (4.5-11.0)
[2024-02-14 07:27] LABS: ALBUMIN 3.6 G/DL (3.4-5.0); ANION GAP 7 (8-16); BLOOD UREA NITROGEN 20 MG/DL (7-18); BUN/CREATININE RATIO 16.3 (10.0-20.0); CHLORIDE 105 MMOL/L (99-107); CREATININE 1.23 MG/DL (0.40-0.90); GLUCOSE 95 MG/DL (70-104); MAGNESIUM 1.7 MG/DL (1.5-2.4); POTASSIUM 4.2 MMOL/L (3.5-5.1); SODIUM 140 MMOL/L (135-145); THYROID STIMULATING HORMONE 1.73 ulU/ml (0.34-4.50); TOTAL CARBON DIOXIDE 27.7 MMOL/L (24-32); eCRCL 34 ML/MIN; eGFR 42 ML/MIN
[2024-02-14 08:00] VITALS: BP_SYST 136; BP_SYST 143; BP_DIAS 80; BP_DIAS 86; PULSE 74; PULSE 80; RESP 16; O2SAT 96
[2024-02-14] MEDS: diltiazem CD 120mg capsule (once-daily) PO SCH (08:16)
[2024-02-14 11:00] VITALS: BP 145/84; PULSE 88; RESP 17; TEMP 97.3; O2SAT 97
[2024-02-14 15:52] VITALS: BP 126/67; PULSE 64; RESP 14; TEMP 97.5; O2SAT 96
[2024-02-14] MEDS ORDERED: METO200T3 PO (17:06)
[2024-02-14] MEDS ORDERED: metoprolol succinate 25mg (24-HOUR) SR. Tablet PO SCH (20:00)
[2024-02-15] MEDS ORDERED: amiodarone 200mg tablet PO SCH (08:00)
== END 2024-02-14 17:40 | disposition home or self-care (01) | DRG 309 ==
LOC: ER 12:03 → ED HOLD 17:10 → PCU 3S 19:25
PROVIDERS: ADMIT Internal Medicine; ATTEND Internal Medicine
DX: I48.91 Unspecified atrial fibrillation (principal); I13.0 Hypertensive heart and chronic kidney disease with heart failure and stage 1 through stage 4 chronic kidney disease, or unspecified chronic kidney disease; N18.30 Chronic kidney disease, stage 3 unspecified; I50.9 Heart failure, unspecified; Z20.822 Contact with and (suspected) exposure to COVID-19; Z79.899 Other long term (current) drug therapy; Z79.01 Long term (current) use of anticoagulants; Z90.710 Acquired absence of both cervix and uterus
CPT/HCPCS: 36415; 71045; 76770; 80048; 80053; 83735; 83880; 84443; 84484; 85025; 85379; 87081; 93005; 99285; G0378; J3490; J7030

== ENCOUNTER 2024-05-22 07:41 | Inpatient (IN) | payer MEDICARE, OTHER ==
[~2024-05-22] VITALS: Ht 165.1 cm; Wt 91.4 kg
[~2024-05-22 07:41] MED LIST changes: +ASCO250T68; +CHOL1LIQ; +CRAMP; +CYAN-34 PO; -DILT360T13 PO; -LOP12.5T PO; +METO200T3 PO; +VIT1TAB.18
[2024-05-22 08:18] LABS: ALANINE AMINOTRANSFERASE 45 U/L (12-78); ALBUMIN 3.4 G/DL (3.4-5.0); ALBUMIN/GLOBULIN RATIO 1.3 (1.1-1.5); ALKALINE PHOSPHATASE 61 IU/L (46-116); ANION GAP 9 (8-16); ASPARTATE AMINO TRANSFERASE 45 U/L (10-37); BILIRUBIN,TOTAL 1.2 MG/DL (0.1-1.0); BLOOD UREA NITROGEN 21 MG/DL (7-18); BUN/CREATININE RATIO 14.9 (10.0-20.0); CHLORIDE 105 MMOL/L (99-107); CREATININE 1.41 MG/DL (0.40-0.90); GLUCOSE 117 MG/DL (70-104); POTASSIUM 4.1 MMOL/L (3.5-5.1); SODIUM 140 MMOL/L (135-145); TOTAL CARBON DIOXIDE 25.7 MMOL/L (24-32); TOTAL PROTEIN 6.1 G/DL (6.4-8.2); eCRCL 30 ML/MIN; eGFR 36 ML/MIN
[2024-05-22 08:25] LABS: PRO BRAIN NATRIURETIC PEPTIDE 3939 PG/ML (0-450)
[2024-05-22] MEDS: ondansetron/PF 4mg/2ml inj IV ONE (08:45)
[2024-05-22] MEDS: magnesium sulf-water 2g/50mL 50 ML IV ONE (08:45)
[2024-05-22] MEDS: normal saline 1000ML IV soln IVB ONE (09:08)
[2024-05-22] MEDS: metoprolol tartrate 1mg/ml inj IV SCH (09:13)
[2024-05-22] MEDS ORDERED: SACC250C9 PO (09:40)
[2024-05-22] MEDS ORDERED: ALPR0.5T2 PO (09:40)
[2024-05-22 10:01] LABS: MAGNESIUM 1.3 MG/DL (1.5-2.4)
[2024-05-22] MEDS ORDERED: metoprolol tartrate 1mg/ml inj IV SCH (12:15)
[2024-05-22 12:31] LABS: RED BLOOD COUNT 4.97 X10'6 (3.60-4.90); WHITE BLOOD COUNT 11.8 X10'3 (4.5-11.0)
[2024-05-22 12:32] LABS: BASOPHILS % 0 % (0-2); EOSINOPHILS # (AUTO) 0.1 X10'3 (0-0.9); EOSINOPHILS % (AUTO) 1 % (0-6); HEMATOCRIT 46.4 % (37.7-47.9); LYMPHOCYTES # (AUTO) 1.7 X10'3 (1.1-4.8); LYMPHOCYTES % 14 % (24-44); MEAN CORPUSCULAR HEMOGLOBIN 30.2 PG (27-31.2); MEAN CORPUSCULAR HGB CONC 32.4 % (32-36); MEAN CORPUSCULAR VOLUME 93.3 FL (81-97); MONOCYTES # (AUTO) 0.8 X10'3 (0-0.9); MONOCYTES % 7 % (0-12); NEUTROPHILS # (AUTO) 9.2 X10'3 (1.8-7.7); PLATELET COUNT 268 X10'3 (130-400); RED CELL DISTRIBUTION WIDTH 15.2 % (11-16); SEGMENTED NEUTROPHILS % 78 % (36-66)
[2024-05-22] MEDS ORDERED: acetaminophen 325mg tablet PO PRN (15:30)
[2024-05-22] MEDS ORDERED: potassium Cl 20 mEq SR tablet PO PRN ×2 (15:30)
[2024-05-22] MEDS ORDERED: magnesium Cl slow-release 64mg tablet PO PRN (15:30)
[2024-05-22] MEDS ORDERED: potassium Cl 40MEQ/1/2NS 520ml 520 ML IV PRN (15:30)
[2024-05-22] MEDS ORDERED: magnesium sulf-water 2g/50mL 50 ML IV PRN (15:30)
[2024-05-22] MEDS ORDERED: magnesium sulf-water 4G/100mL 100 ML IV PRN (15:30)
[2024-05-22] MEDS ORDERED: ondansetron/PF 4mg/2ml inj IV PRN (15:30)
[2024-05-22] MEDS ORDERED: morphine 2 MG/ML inj. syringe IV PRN (15:30)
[2024-05-22] MEDS: carVEDilol 3.125mg tablet PO SCH (16:40)
[2024-05-22] MEDS: diltiazem-NS 100mg/100ml 100 ML IV PRN (17:33)
[2024-05-22 18:00] VITALS: BP 117/77; PULSE 89; RESP 17; TEMP 97.4; O2SAT 95
[2024-05-22] MEDS ORDERED: diltiazem-NS 100mg/100ml 100 ML IV PRN (18:32)
[2024-05-22 20:00] VITALS: RESP 20; O2SAT 98
[2024-05-22] MEDS: K and/or MAG REPLACEMENT MC SCH (20:00)
[2024-05-22] MEDS: apixaban 5mg tablet PO SCH (21:54)
[2024-05-22] MEDS: metoprolol succinate 25mg (24-HOUR) SR. Tablet PO SCH (21:54)
[2024-05-22 22:00] VITALS: BP 130/86; PULSE 97; RESP 18; TEMP 98.2; O2SAT 98
[2024-05-22] MEDS: normal saline 1000ml 1,000 ML IV SCH (22:00)
[2024-05-23 02:00] VITALS: BP 126/77; PULSE 73; RESP 19; TEMP 97.1; O2SAT 96
[2024-05-23 06:00] VITALS: BP 123/75; PULSE 76; RESP 18; TEMP 97.9; O2SAT 94
[2024-05-23 06:06] LABS: BASOPHILS # (AUTO) 0.1 X10'3 (0-0.2); BASOPHILS % (AUTO) 0.7 % (0-1); EOSINOPHILS # (AUTO) 0.2 X10'3 (0-0.9); EOSINOPHILS % (AUTO) 2.6 % (0-6); HEMATOCRIT 41.5 % (35.0-45.0); HEMOGLOBIN 13.6 g/dl (12.0-16.0); LYMPHOCYTES # (AUTO) 2.2 X10'3 (1.1-4.8); LYMPHOCYTES % (AUTO) 28.8 % (21-51); MEAN CORPUSCULAR HGB CONC 32.8 g/dL (33.0-36.5); MEAN CORPUSCULAR VOLUME 94.3 FL (78-98); MEAN PLATELET VOLUME 9.7 FL (7.4-10.4); MONOCYTES # (AUTO) 0.7 X10'3 (0-0.9); MONOCYTES % (AUTO) 8.4 % (2-12); NEUTROPHILS # (AUTO) 4.6 X10'3 (1.8-7.7); NEUTROPHILS % (AUTO) 59.5 % (42-75); PLATELET COUNT 232 X10'3 (140-440); RED CELL DISTRIBUTION WIDTH 14.9 % (11.5-14.5); WHITE BLOOD COUNT 7.7 X10'3 (4.5-11.0)
[2024-05-23 06:20] LABS: ANION GAP 7 (8-16); BLOOD UREA NITROGEN 16 MG/DL (7-18); BUN/CREATININE RATIO 14.5 (10.0-20.0); CALCIUM 8.5 MG/DL (8.5-10.1); CHLORIDE 108 MMOL/L (99-107); GLUCOSE 100 MG/DL (70-104); MAGNESIUM 1.5 MG/DL (1.5-2.4); POTASSIUM 4.1 MMOL/L (3.5-5.1); SODIUM 142 MMOL/L (135-145); TOTAL CARBON DIOXIDE 26.7 MMOL/L (24-32); eCRCL 39 ML/MIN; eGFR 48 ML/MIN
[2024-05-23 08:00] VITALS: RESP 18; O2SAT 98
[2024-05-23] MEDS: diltiazem 30mg tablet PO SCH (10:39)
[2024-05-23 12:00] VITALS: BP 112/91; PULSE 71; RESP 16; TEMP 97.6; O2SAT 95
[2024-05-23] MEDS ORDERED: DILT30TA2 PO (13:07)
[2024-05-23] MEDS: carVEDilol 3.125mg tablet PO ONE (13:08)
== END 2024-05-23 15:00 | disposition home or self-care (01) | DRG 291 ==
LOC: ER 07:41 → ED HOLD 15:33 → PCU 3S 18:00
PROVIDERS: ADMIT Internal Medicine; ATTEND Internal Medicine
DX: I13.0 Hypertensive heart and chronic kidney disease with heart failure and stage 1 through stage 4 chronic kidney disease, or unspecified chronic kidney disease (principal); I50.33 Acute on chronic diastolic (congestive) heart failure; N17.0 Acute kidney failure with tubular necrosis; I48.91 Unspecified atrial fibrillation; F41.9 Anxiety disorder, unspecified; N18.9 Chronic kidney disease, unspecified; E89.0 Postprocedural hypothyroidism; Z90.710 Acquired absence of both cervix and uterus; Z90.5 Acquired absence of kidney; Z79.01 Long term (current) use of anticoagulants; Z88.8 Allergy status to other drugs, medicaments and biological substances; Z91.048 Other nonmedicinal substance allergy status; Z79.899 Other long term (current) drug therapy; Z90.49 Acquired absence of other specified parts of digestive tract
CPT/HCPCS: 36415; 71045; 80048; 80053; 83735; 83880; 84484; 85025; 87081; 93005; 96365; 96375; 99291; G0378; J2405; J3490; J7030

== ENCOUNTER 2024-06-12 03:39 | Inpatient (IN) | payer MEDICARE, OTHER ==
[~2024-06-12] VITALS: Ht 165.1 cm; Wt 102.3 kg
[~2024-06-12 03:39] MED LIST changes: -AMI200T PO; -ASCO250T68; +ASCO250T68 PO; +DILT30TA2 PO; +SACC250C9 PO
[2024-06-12] MEDS: normal saline 1000ml 1,000 ML IV ONE (04:20)
[2024-06-12 04:29] LABS: ALANINE AMINOTRANSFERASE 29 U/L (12-78); ALBUMIN 3.4 G/DL (3.4-5.0); ALBUMIN/GLOBULIN RATIO 1.2 (1.1-1.5); ALKALINE PHOSPHATASE 61 IU/L (46-116); ANION GAP 11 (8-16); ASPARTATE AMINO TRANSFERASE 22 U/L (10-37); BASOPHILS % (AUTO) 0.3 % (0-1); BILIRUBIN,TOTAL 0.7 MG/DL (0.1-1.0); BLOOD UREA NITROGEN 17 MG/DL (7-18); BUN/CREATININE RATIO 15.7 (10.0-20.0); CALCIUM 8.9 MG/DL (8.5-10.1); CHLORIDE 106 MMOL/L (99-107); CREATININE 1.08 MG/DL (0.40-0.90); EOSINOPHILS # (AUTO) 0.1 X10'3 (0-0.9); EOSINOPHILS % (AUTO) 0.5 % (0-6); GLUCOSE 151 MG/DL (70-104); HEMATOCRIT 43.4 % (35.0-45.0); HEMOGLOBIN 14.2 g/dl (12.0-16.0); LIPASE 27 U/L (16-77); LYMPHOCYTES # (AUTO) 1.2 X10'3 (1.1-4.8); LYMPHOCYTES % (AUTO) 9.8 % (21-51); MEAN CORPUSCULAR HEMOGLOBIN 30.4 PG (27.0-31.0); MEAN CORPUSCULAR HGB CONC 32.8 g/dL (33.0-36.5); MEAN CORPUSCULAR VOLUME 92.9 FL (78-98); MEAN PLATELET VOLUME 9.6 FL (7.4-10.4); MONOCYTES # (AUTO) 0.6 X10'3 (0-0.9); MONOCYTES % (AUTO) 5.1 % (2-12); NEUTROPHILS # (AUTO) 10.2 X10'3 (1.8-7.7); NEUTROPHILS % (AUTO) 84.3 % (42-75); PLATELET COUNT 261 X10'3 (140-440); POTASSIUM 4.3 MMOL/L (3.5-5.1); RED BLOOD COUNT 4.67 X10'6 (4.20-5.60); RED CELL DISTRIBUTION WIDTH 14.7 % (11.5-14.5); SODIUM 143 MMOL/L (135-145); TOTAL CARBON DIOXIDE 25.8 MMOL/L (24-32); TOTAL PROTEIN 6.3 G/DL (6.4-8.2); WHITE BLOOD COUNT 12.1 X10'3 (4.5-11.0); eCRCL 39 ML/MIN; eGFR 49 ML/MIN
[2024-06-12] MEDS ORDERED: iohexol 300mg/ml 100ml inj. ONE (04:54)
[2024-06-12 05:01] LABS: BILIRUBIN,URINE NEGATIVE (Neg); CLARITY,URINE SLIGHTLY CLOUDY (Clear); COLOR,URINE YELLOW (Yellow); GLUCOSE, URINE NEGATIVE (Neg); KETONES,URINE NEGATIVE (Neg); LEUKOCYTE ESTERASE ,URINE NEGATIVE (Neg); NITRITES, URINE NEGATIVE (Neg); OCCULT BLOOD,URINE NEGATIVE (Neg); PH,URINE 6.5 (4.8-8.0); PROTEIN,URINE NEGATIVE (Neg); UROBILINOGEN,URINE 0.2 E.U/dL (0.2-1.0)
[2024-06-12 05:08] LABS: UA COLLECTION TYPE URINAL
[2024-06-12 05:16] LABS: BACTERIA,URINE 1+ /HPF (Neg); MUCUS STRANDS FEW /LPF (Neg); RBC,URINE 0-2 /HPF (0-2); SQUAMOUS EPITHELIAL CELL,UR FEW /LPF (FEW); WBC,URINE 0-4 /HPF (0-4)
[2024-06-12 05:17] LABS: HYALINE CASTS 0-3 /LPF (NEGATIVE)
[2024-06-12] MEDS: acetaminophen 325mg tablet PO ONE (07:29)
[2024-06-12] MEDS: HYDROmorphone 1 mg/ml syringe IV ONE (07:54)
[2024-06-12] MEDS: ondansetron/PF 4mg/2ml inj IV ONE (07:54)
[2024-06-12] MEDS ORDERED: potassium Cl 40MEQ/1/2NS 520ml 520 ML IV PRN (09:50)
[2024-06-12] MEDS ORDERED: magnesium sulf-water 2g/50mL 50 ML IV PRN (09:50)
[2024-06-12] MEDS ORDERED: acetaminophen 325mg tablet PO PRN (09:50)
[2024-06-12] MEDS ORDERED: potassium Cl 20 mEq SR tablet PO PRN ×2 (09:50)
[2024-06-12] MEDS ORDERED: magnesium Cl slow-release 64mg tablet PO PRN (09:50)
[2024-06-12] MEDS ORDERED: magnesium sulf-water 4G/100mL 100 ML IV PRN (09:50)
[2024-06-12] MEDS: normal saline 1000ml 1,000 ML IV SCH (10:01)
[2024-06-12 11:22] LABS: PRO BRAIN NATRIURETIC PEPTIDE 4439 PG/ML (0-450)
[2024-06-12] MEDS ORDERED: traMADol 50MG tablet PO PRN (13:50)
[2024-06-12] MEDS ORDERED: morphine 2 MG/ML inj. syringe IV PRN (13:50)
[2024-06-12] MEDS: ondansetron/PF 4mg/2ml inj IV PRN (14:12)
[2024-06-12] MEDS: morphine 4 MG/ML inj SYRINge IV PRN (14:13)
[2024-06-12 15:13] VITALS: BP 116/89; PULSE 100; RESP 16; TEMP 97.3; O2SAT 97
[2024-06-12] MEDS: acetaminophen 325mg tablet PO SCH (16:05)
[2024-06-12] MEDS: proMETHazine 25mg tablet PO PRN (16:06)
[2024-06-12 19:06] VITALS: BP 135/84; PULSE 92; RESP 16; TEMP 97.6; O2SAT 95
[2024-06-12 20:35] VITALS: RESP 14; O2SAT 93
[2024-06-12] MEDS: heparin, porcine 5000 units/ml vial SQ SCH (20:49)
[2024-06-12 22:24] VITALS: BP 127/90; PULSE 91; RESP 16; TEMP 96.9; O2SAT 93
[2024-06-13 05:35] LABS: BASOPHILS % (AUTO) 0.3 % (0-1); EOSINOPHILS # (AUTO) 0.1 X10'3 (0-0.9); EOSINOPHILS % (AUTO) 1.6 % (0-6); HEMATOCRIT 41.3 % (35.0-45.0); HEMOGLOBIN 13.7 g/dl (12.0-16.0); LYMPHOCYTES # (AUTO) 1.2 X10'3 (1.1-4.8); LYMPHOCYTES % (AUTO) 14.7 % (21-51); MEAN CORPUSCULAR HEMOGLOBIN 30.8 PG (27.0-31.0); MEAN CORPUSCULAR HGB CONC 33.2 g/dL (33.0-36.5); MEAN CORPUSCULAR VOLUME 92.9 FL (78-98); MEAN PLATELET VOLUME 9.2 FL (7.4-10.4); MONOCYTES # (AUTO) 0.8 X10'3 (0-0.9); MONOCYTES % (AUTO) 10.1 % (2-12); NEUTROPHILS % (AUTO) 73.3 % (42-75); PLATELET COUNT 263 X10'3 (140-440); RED BLOOD COUNT 4.45 X10'6 (4.20-5.60); RED CELL DISTRIBUTION WIDTH 14.5 % (11.5-14.5); WHITE BLOOD COUNT 8.2 X10'3 (4.5-11.0)
[2024-06-13 05:44] LABS: ALANINE AMINOTRANSFERASE 26 U/L (12-78); ALBUMIN 2.8 G/DL (3.4-5.0); ALBUMIN/GLOBULIN RATIO 1.1 (1.1-1.5); ALKALINE PHOSPHATASE 53 IU/L (46-116); ANION GAP 5 (8-16); ASPARTATE AMINO TRANSFERASE 20 U/L (10-37); BILIRUBIN,TOTAL 0.9 MG/DL (0.1-1.0); BLOOD UREA NITROGEN 15 MG/DL (7-18); BUN/CREATININE RATIO 13.2 (10.0-20.0); CHLORIDE 110 MMOL/L (99-107); CREATININE 1.14 MG/DL (0.40-0.90); GLUCOSE 108 MG/DL (70-104); POTASSIUM 4.1 MMOL/L (3.5-5.1); SODIUM 144 MMOL/L (135-145); TOTAL CARBON DIOXIDE 29.3 MMOL/L (24-32); TOTAL PROTEIN 5.4 G/DL (6.4-8.2); eCRCL 37 ML/MIN; eGFR 46 ML/MIN
[2024-06-13 06:54] VITALS: BP 122/81; PULSE 102; RESP 16; TEMP 98; O2SAT 94
[2024-06-13 07:55] VITALS: RESP 16; O2SAT 94
[2024-06-13 10:00] VITALS: BP 129/82; PULSE 135; RESP 16; TEMP 97.9; O2SAT 95
[2024-06-13] MEDS: Chloraseptic (Phenol) Spray 177ml MM PRN (12:36)
[2024-06-13] MEDS: diltiazem 30mg tablet PO ONE (14:28)
[2024-06-13 18:00] VITALS: BP 122/81; PULSE 102; RESP 16; TEMP 98; O2SAT 94
[2024-06-13 19:10] VITALS: BP 142/101; PULSE 155; RESP 16; O2SAT 94
[2024-06-13] MEDS: metoprolol succinate 25mg (24-HOUR) SR. Tablet PO SCH (19:16)
[2024-06-13] MEDS ORDERED: apixaban 5mg tablet PO SCH (20:00)
[2024-06-13] MEDS: diltiazem 30mg tablet PO SCH (21:19)
[2024-06-13 22:00] VITALS: BP 115/94; PULSE 89; RESP 16; TEMP 98.9; O2SAT 94
[2024-06-14] MEDS: diltiazem 30mg tablet PO ONE (01:52)
[2024-06-14 02:10] VITALS: BP 152/93; PULSE 145
[2024-06-14 06:00] VITALS: BP 145/106; PULSE 129; RESP 16; TEMP 98.7; O2SAT 93
[2024-06-14 06:20] VITALS: BP 129/99; PULSE 174; RESP 20; O2SAT 94
[2024-06-14 06:23] LABS: BASOPHILS % (AUTO) 0.4 % (0-1); EOSINOPHILS # (AUTO) 0.1 X10'3 (0-0.9); EOSINOPHILS % (AUTO) 1.3 % (0-6); HEMATOCRIT 42.2 % (35.0-45.0); LYMPHOCYTES # (AUTO) 1.2 X10'3 (1.1-4.8); MEAN CORPUSCULAR HEMOGLOBIN 30.8 PG (27.0-31.0); MEAN CORPUSCULAR HGB CONC 33.1 g/dL (33.0-36.5); MEAN CORPUSCULAR VOLUME 93.1 FL (78-98); MEAN PLATELET VOLUME 9.8 FL (7.4-10.4); MONOCYTES # (AUTO) 0.8 X10'3 (0-0.9); MONOCYTES % (AUTO) 7.8 % (2-12); NEUTROPHILS % (AUTO) 78.5 % (42-75); PLATELET COUNT 230 X10'3 (140-440); RED BLOOD COUNT 4.54 X10'6 (4.20-5.60); RED CELL DISTRIBUTION WIDTH 14.3 % (11.5-14.5); WHITE BLOOD COUNT 10.2 X10'3 (4.5-11.0)
[2024-06-14 06:46] LABS: ALANINE AMINOTRANSFERASE 23 U/L (12-78); ALKALINE PHOSPHATASE 57 IU/L (46-116); ANION GAP 8 (8-16); ASPARTATE AMINO TRANSFERASE 19 U/L (10-37); BILIRUBIN,TOTAL 0.8 MG/DL (0.1-1.0); BLOOD UREA NITROGEN 13 MG/DL (7-18); BUN/CREATININE RATIO 12.7 (10.0-20.0); CALCIUM 8.4 MG/DL (8.5-10.1); CHLORIDE 109 MMOL/L (99-107); CREATININE 1.02 MG/DL (0.40-0.90); GLUCOSE 99 MG/DL (70-104); POTASSIUM 3.8 MMOL/L (3.5-5.1); SODIUM 145 MMOL/L (135-145); TOTAL CARBON DIOXIDE 27.9 MMOL/L (24-32); eCRCL 42 ML/MIN; eGFR 53 ML/MIN
[2024-06-14] MEDS: metoprolol tartrate 1mg/ml inj IV ONE (07:02)
[2024-06-14] MEDS: ketorolac trometh 15mg/ml vial 15 MG/ML ML IV ONE (07:12)
[2024-06-14] MEDS: ascorbic acid 500mg tablet PO SCH (08:00)
[2024-06-14] MEDS: diltiazem 30mg tablet PO SCH (11:29)
[2024-06-14 11:35] VITALS: BP 130/88; PULSE 99; RESP 18; TEMP 97.9; O2SAT 92
[2024-06-14] MEDS ORDERED: pantoprazole 40mg IV 80 MG in normal saline 100ml IV soln 100 ML IV ONE (12:45)
[2024-06-14] MEDS: PERFLUTREN PROTEIN-A MICROSPHR (Optison) 0.22 MG/ML 3ML VIAL IV ONE (12:50)
[2024-06-14] MEDS: pantoprazole 40 MG vial IV ONE (13:27)
[2024-06-14 14:35] LABS: GASTRIC OCCULT BLOOD POSITIVE (Neg)
[2024-06-14 18:00] VITALS: BP 136/85; PULSE 106; RESP 17; TEMP 97.4; O2SAT 90
[2024-06-14] MEDS: pantoprazole 40MG/NS 100ML BAG 100 ML IV SCH (20:45)
[2024-06-14 22:00] VITALS: BP 149/79; PULSE 110; RESP 16; TEMP 98.3; O2SAT 91
[2024-06-15] MEDS: metoprolol tartrate 1mg/ml inj IV ONE (03:17)
[2024-06-15 05:47] LABS: BASOPHILS % (AUTO) 0.3 % (0-1); EOSINOPHILS # (AUTO) 0.1 X10'3 (0-0.9); EOSINOPHILS % (AUTO) 1.3 % (0-6); HEMATOCRIT 38.9 % (35.0-45.0); HEMOGLOBIN 12.9 g/dl (12.0-16.0); LYMPHOCYTES % (AUTO) 9.6 % (21-51); MEAN CORPUSCULAR HEMOGLOBIN 31.1 PG (27.0-31.0); MEAN CORPUSCULAR HGB CONC 33.3 g/dL (33.0-36.5); MEAN CORPUSCULAR VOLUME 93.5 FL (78-98); MEAN PLATELET VOLUME 9.6 FL (7.4-10.4); MONOCYTES # (AUTO) 0.8 X10'3 (0-0.9); MONOCYTES % (AUTO) 8.2 % (2-12); NEUTROPHILS # (AUTO) 8.1 X10'3 (1.8-7.7); NEUTROPHILS % (AUTO) 80.6 % (42-75); PLATELET COUNT 233 X10'3 (140-440); RED BLOOD COUNT 4.16 X10'6 (4.20-5.60); RED CELL DISTRIBUTION WIDTH 14.3 % (11.5-14.5); WHITE BLOOD COUNT 10.1 X10'3 (4.5-11.0)
[2024-06-15 06:36] VITALS: BP 157/109; PULSE 59; RESP 11; TEMP 98.2; O2SAT 95
[2024-06-15 06:49] LABS: ALANINE AMINOTRANSFERASE 19 U/L (12-78); ALBUMIN 2.8 G/DL (3.4-5.0); ALKALINE PHOSPHATASE 52 IU/L (46-116); ANION GAP 10 (8-16); ASPARTATE AMINO TRANSFERASE 18 U/L (10-37); BILIRUBIN,TOTAL 0.7 MG/DL (0.1-1.0); BLOOD UREA NITROGEN 11 MG/DL (7-18); BUN/CREATININE RATIO 12.2 (10.0-20.0); CALCIUM 8.1 MG/DL (8.5-10.1); CHLORIDE 109 MMOL/L (99-107); GLUCOSE 95 MG/DL (70-104); POTASSIUM 3.8 MMOL/L (3.5-5.1); SODIUM 146 MMOL/L (135-145); TOTAL CARBON DIOXIDE 27.3 MMOL/L (24-32); TOTAL PROTEIN 5.7 G/DL (6.4-8.2); eCRCL 47 ML/MIN; eGFR 61 ML/MIN
[2024-06-15 15:01] VITALS: BP 147/82; PULSE 140; RESP 16; TEMP 97.2; O2SAT 97
[2024-06-15 18:00] VITALS: BP 148/95; PULSE 133; RESP 18; TEMP 97.1; O2SAT 95
[2024-06-15 22:10] VITALS: BP 139/107; PULSE 97; RESP 14; TEMP 98.7; O2SAT 100
[2024-06-16 06:00] VITALS: BP 146/85; PULSE 94; RESP 13; TEMP 97.9; O2SAT 93
[2024-06-16 09:17] LABS: BASOPHILS % (AUTO) 0.5 % (0-1); EOSINOPHILS # (AUTO) 0.4 X10'3 (0-0.9); EOSINOPHILS % (AUTO) 4.7 % (0-6); HEMATOCRIT 41.9 % (35.0-45.0); HEMOGLOBIN 13.7 g/dl (12.0-16.0); LYMPHOCYTES # (AUTO) 1.2 X10'3 (1.1-4.8); LYMPHOCYTES % (AUTO) 14.9 % (21-51); MEAN CORPUSCULAR HEMOGLOBIN 30.3 PG (27.0-31.0); MEAN CORPUSCULAR HGB CONC 32.7 g/dL (33.0-36.5); MEAN CORPUSCULAR VOLUME 92.6 FL (78-98); MEAN PLATELET VOLUME 9.1 FL (7.4-10.4); MONOCYTES # (AUTO) 0.7 X10'3 (0-0.9); MONOCYTES % (AUTO) 8.5 % (2-12); NEUTROPHILS # (AUTO) 5.7 X10'3 (1.8-7.7); NEUTROPHILS % (AUTO) 71.4 % (42-75); PLATELET COUNT 244 X10'3 (140-440); RED BLOOD COUNT 4.52 X10'6 (4.20-5.60); RED CELL DISTRIBUTION WIDTH 14.1 % (11.5-14.5)
[2024-06-16 09:21] LABS: ALANINE AMINOTRANSFERASE 15 U/L (12-78); ALBUMIN 2.7 G/DL (3.4-5.0); ALBUMIN/GLOBULIN RATIO 0.9 (1.1-1.5); ALKALINE PHOSPHATASE 52 IU/L (46-116); ANION GAP 10 (8-16); ASPARTATE AMINO TRANSFERASE 18 U/L (10-37); BILIRUBIN,TOTAL 0.7 MG/DL (0.1-1.0); BLOOD UREA NITROGEN 8 MG/DL (7-18); BUN/CREATININE RATIO 10.3 (10.0-20.0); CALCIUM 8.4 MG/DL (8.5-10.1); CHLORIDE 108 MMOL/L (99-107); CREATININE 0.78 MG/DL (0.40-0.90); GLUCOSE 85 MG/DL (70-104); POTASSIUM 3.8 MMOL/L (3.5-5.1); SODIUM 145 MMOL/L (135-145); TOTAL CARBON DIOXIDE 27.3 MMOL/L (24-32); TOTAL PROTEIN 5.7 G/DL (6.4-8.2); eCRCL 54 ML/MIN; eGFR 72 ML/MIN
[2024-06-16 10:00] VITALS: BP 137/87; PULSE 124; RESP 15; TEMP 97.3; O2SAT 95
[2024-06-16] MEDS: furosemide 40mg/4ml inj IV ONE (11:59)
[2024-06-16 12:06] LABS: PRO BRAIN NATRIURETIC PEPTIDE 3557 PG/ML (0-450)
[2024-06-16 18:00] VITALS: BP 158/92; PULSE 116; RESP 15; TEMP 97.9; O2SAT 93
[2024-06-16 20:00] VITALS: RESP 15; O2SAT 95
[2024-06-16 20:35] VITALS: BP 151/104; PULSE 134
[2024-06-16] MEDS: apixaban 5mg tablet PO SCH (20:35)
[2024-06-16 22:00] VITALS: BP 147/92; PULSE 100; RESP 12; TEMP 98.3; O2SAT 95
[2024-06-17 03:09] VITALS: BP 145/96; PULSE 103
[2024-06-17 06:00] VITALS: BP 136/98; PULSE 109; RESP 13; TEMP 97.4; O2SAT 93
[2024-06-17 06:30] LABS: BASOPHILS % (AUTO) 0.6 % (0-1); EOSINOPHILS # (AUTO) 0.4 X10'3 (0-0.9); EOSINOPHILS % (AUTO) 4.7 % (0-6); HEMATOCRIT 40.6 % (35.0-45.0); HEMOGLOBIN 13.4 g/dl (12.0-16.0); LYMPHOCYTES # (AUTO) 1.1 X10'3 (1.1-4.8); LYMPHOCYTES % (AUTO) 14.4 % (21-51); MEAN CORPUSCULAR HEMOGLOBIN 30.6 PG (27.0-31.0); MEAN CORPUSCULAR HGB CONC 33.2 g/dL (33.0-36.5); MEAN CORPUSCULAR VOLUME 92.2 FL (78-98); MONOCYTES # (AUTO) 0.7 X10'3 (0-0.9); MONOCYTES % (AUTO) 9.1 % (2-12); NEUTROPHILS # (AUTO) 5.3 X10'3 (1.8-7.7); NEUTROPHILS % (AUTO) 71.2 % (42-75); PLATELET COUNT 259 X10'3 (140-440); RED CELL DISTRIBUTION WIDTH 14.1 % (11.5-14.5); WHITE BLOOD COUNT 7.5 X10'3 (4.5-11.0)
[2024-06-17 06:51] LABS: ALANINE AMINOTRANSFERASE 19 U/L (12-78); ALBUMIN 2.6 G/DL (3.4-5.0); ALBUMIN/GLOBULIN RATIO 0.9 (1.1-1.5); ALKALINE PHOSPHATASE 51 IU/L (46-116); ANION GAP 8 (8-16); ASPARTATE AMINO TRANSFERASE 19 U/L (10-37); BILIRUBIN,TOTAL 0.6 MG/DL (0.1-1.0); BLOOD UREA NITROGEN 6 MG/DL (7-18); BUN/CREATININE RATIO 7.7 (10.0-20.0); CHLORIDE 107 MMOL/L (99-107); CREATININE 0.78 MG/DL (0.40-0.90); GLUCOSE 104 MG/DL (70-104); POTASSIUM 3.3 MMOL/L (3.5-5.1); SODIUM 144 MMOL/L (135-145); TOTAL CARBON DIOXIDE 29.1 MMOL/L (24-32); TOTAL PROTEIN 5.5 G/DL (6.4-8.2); eCRCL 54 ML/MIN; eGFR 72 ML/MIN
[2024-06-17 10:00] VITALS: BP 123/89; PULSE 111; RESP 18; TEMP 98.6; O2SAT 94
[2024-06-17] MEDS ORDERED: FURO-150 PO (14:49)
== END 2024-06-17 16:30 | disposition home or self-care (01) | DRG 388 ==
LOC: ER 03:39 → ED HOLD 09:54 → ORTHO 4S 14:35
PROVIDERS: ADMIT Internal Medicine; ATTEND Internal Medicine
PROC: BW211ZZ Computerized Tomography (CT Scan) of Abdomen and Pelvis using Low Osmolar Contrast (ICD-10-PCS; 2024-06-12)
PROC: 0D9670Z Drainage of Stomach with Drainage Device, Via Natural or Artificial Opening (ICD-10-PCS; principal; 2024-06-14)
DX: K56.600 Partial intestinal obstruction, unspecified as to cause (principal); I50.33 Acute on chronic diastolic (congestive) heart failure; K92.0 Hematemesis; I48.20 Chronic atrial fibrillation, unspecified; K91.840 Postprocedural hemorrhage of a digestive system organ or structure following a digestive system procedure; I11.0 Hypertensive heart disease with heart failure; Z91.09 Other allergy status, other than to drugs and biological substances; Z90.710 Acquired absence of both cervix and uterus; Z88.5 Allergy status to narcotic agent; Z79.01 Long term (current) use of anticoagulants; Z79.899 Other long term (current) drug therapy; Z90.5 Acquired absence of kidney; Z90.49 Acquired absence of other specified parts of digestive tract
CPT/HCPCS: 36415; 71045; 74177; 80053; 81001; 82271; 83605; 83690; 83880; 84145; 84484; 85025; 85651; 87040; 87081; 93005; 93306; 96374; 96375; 99285; A4615; G0378; J1170; J1644; J1940; J2270; J2405; J2470; J3490; J7030; J8597; Q0169; Q9967

== ENCOUNTER 2024-10-06 13:31 | Outpatient (CLI) | payer MEDICARE, OTHER ==
[~2024-10-06 13:31] MED LIST changes: +FURO-150 PO
[2024-10-06 14:18] LABS: BASOPHILS % (AUTO) 0.5 % (0-1); EOSINOPHILS # (AUTO) 0.3 X10'3 (0-0.9); EOSINOPHILS % (AUTO) 3.2 % (0-6); HEMATOCRIT 38.6 % (35.0-45.0); HEMOGLOBIN 13.1 g/dl (12.0-16.0); LYMPHOCYTES # (AUTO) 1.4 X10'3 (1.1-4.8); LYMPHOCYTES % (AUTO) 14.9 % (21-51); MEAN CORPUSCULAR HEMOGLOBIN 31.4 PG (27.0-31.0); MEAN CORPUSCULAR VOLUME 92.4 FL (78-98); MEAN PLATELET VOLUME 8.4 FL (7.4-10.4); MONOCYTES # (AUTO) 0.7 X10'3 (0-0.9); MONOCYTES % (AUTO) 7.1 % (2-12); NEUTROPHILS % (AUTO) 74.3 % (42-75); PLATELET COUNT 276 X10'3 (140-440); RED BLOOD COUNT 4.18 X10'6 (4.20-5.60); RED CELL DISTRIBUTION WIDTH 15.1 % (11.5-14.5); WHITE BLOOD COUNT 9.4 X10'3 (4.5-11.0)
[2024-10-06 14:28] LABS: APTT 28 SECONDS (22-32); INR 1.1 INR; PROTHROMBIN TIME 11.6 SECONDS (9.0-12.0)
[2024-10-06 14:36] LABS: ALBUMIN 3.7 G/DL (3.4-5.0); ANION GAP 9 (8-16); BLOOD UREA NITROGEN 17 MG/DL (7-18); CALCIUM 8.8 MG/DL (8.5-10.1); CHLORIDE 107 MMOL/L (99-107); CREATININE 1.13 MG/DL (0.40-0.90); GLUCOSE 133 MG/DL (70-104); POTASSIUM 4.2 MMOL/L (3.5-5.1); SODIUM 145 MMOL/L (135-145); TOTAL CARBON DIOXIDE 29.2 MMOL/L (24-32); eGFR 47 ML/MIN
== END 2024-10-06 23:59 | disposition home or self-care (01) ==
LOC: RAD 13:31 → EDSTATUS 10-10 18:30
PROVIDERS: ATTEND Internal Medicine Interventional Cardiology
DX: I48.91 Unspecified atrial fibrillation (principal); I27.20 Pulmonary hypertension, unspecified; I08.1 Rheumatic disorders of both mitral and tricuspid valves; Z79.899 Other long term (current) drug therapy; Z90.5 Acquired absence of kidney
CPT/HCPCS: 36415; 80048; 85025; 85610; 85730